=== PATIENT | female | born 1960 | race Caucasian/White ===

== ENCOUNTER → 2020-08-19 08:30 | Outpatient (BNVA) | payer OTHER, SELFPAY | PROVIDERS: Visit Provider Specialist | DX: Z11.52 Encounter for screening for COVID-19 (principal); Z20.822 Contact with and (suspected) exposure to COVID-19; S62.109A Fracture of unspecified carpal bone, unspecified wrist, initial encounter for closed fracture; X58.XXXA Exposure to other specified factors, initial encounter | CPT/HCPCS: 73110; 87635 ==

== ENCOUNTER 2020-08-21 07:42 | Day surgery (SDC) | payer OTHER, SELFPAY ==
[2020-08-20 15:13] VITALS: BMI 33.5
[2020-08-21] VITALS (10 sets, daily range): BP systolic 147–164; BP diastolic 77–102; PULSE 64–73; RESP 14–18; TEMP 36.5–37.1; O2SAT 96–99
--- NOTE | 2020-08-21 | XR_ITS ---
WS: [id number] Right wrist, C-arm fluoroscopy views, 08/21/2020 Clinical Data: ORIF DISTAL RADIUS Comparison: Right wrist, 08/19/2020. Findings: A ventral plate is applied to the distal right radius and fixed with multiple orthopedic screws. XR/XR wrist RT 2V 70019 Impression: Internal fixation of distal right radial fracture.
--- NOTE | 2020-08-21 | SCC_ITS ---
Procedure Done: Open reduction internal fixation right comminuted distal radius fracture 106.4 seconds of fluoroscopic guidance, for a cumulative dose of 2.38 mGy, was provided to Dr. Gordon by the radiology department. C-arm images of the RIGHT wrist were saved for the patient's permanent record. [facility]
--- NOTE | 2020-08-21 07:55 | P.HPUD_ITS ---
Surgery/Procedure H&P Update DATE OF PROCEDURE: August 21, 2020 DATE H&P PERFORMED: 08/19/20 H&P UPDATE INFORMATION: I have reviewed H&P completed within last 30 days, I have examined patient prior to procedure, No changes to prior documentation and H&P is in [facility] EMR on date indicated PREOP DIAGNOSIS: Comminuted right distal radius fracture PLANNED PROCEDURE: Operation Date: 08/21/20 09:10 Proposed Procedures p OPEN REDUCTION INTERNAL FIXATION WITH POSSIBLE BONE GRAFT OF RIGHT DISTAL RADIUS FRACTURE s52.509A(Right) - Daniella Gordon MD Related Problem List Diagnoses (1) Closed fracture of right distal radius:
[2020-08-21] MEDS: sodium chloride 0.9% 1,000 ML 30 ML IV (08:06)
[2020-08-21] MEDS: acetaminophen 1,000 MG/100 ML PIGGYBACK 400 MG IV (08:12)
[2020-08-21] MEDS: CELEcoxib 200 mg Capsule 400 MG PO (08:13)
--- NOTE | 2020-08-21 09:04 | ANES.PREANE2 ---
Pre-Anesthetic Assessment Pre-Anesthetic Assessment: Height/Weight: Height 1.57 m Weight 83.007 kg Temp Pulse Resp BP Pulse Ox 97.7 F 73 18 150/77 99 08/21/20 07:55 08/21/20 07:55 08/21/20 07:55 08/21/20 07:55 08/21/20 07:55 Preop Diagnosis: Comminuted right distal radius fracture Proposed Procedure: Operation Date: 08/21/20 09:10 Proposed Procedures p OPEN REDUCTION INTERNAL FIXATION WITH POSSIBLE BONE GRAFT OF RIGHT DISTAL RADIUS FRACTURE 39177 s52.509A(Right) - Daniella Gordon MD Was Beta Aida taken within 24 hours: N/A Was Clonidine taken within 24 hours: N/A Last intake: Intake Last Liquid Date 08/20/20 Last Liquid Time 23:00 Last Solid Date 08/20/20 Last Solid Time 20:00 Social: Social History: No alcohol and No tobacco (h/o smoking) Exam: Pre-Anes Outpt Exam: alert, oriented x 3, clear to auscultation bilaterally and regular rate & rhythm Airway: Submandibular: WNL Cervical ROM: WNL MP: 2 Dentition: Full Metabolic: Metabolic: Morbid obesity Anesthetic Plan: ASA status: 2 Anesthesia: General Risk of > 500 ml blood loss (7ml/kg in children): No Meds/Allergies Current Medications: Current Medications Generic Name Dose Route Start Last Admin Trade Name Freq PRN Reason Stop Dose Admin Sodium Chloride 1,000 mls @ 30 ml s/hr 08/21/20 08:00 08/21/20 08:06 Sodium Chloride 0.9% IV 08/22/20 07:59 30 mls/hr .Q24H WILFRIDO Administration PFSH Anesthesia PFSH: Social History Smoking and tobacco status: former smoker Data Anesthesia Cardiac Studies: No Data to Display
[2020-08-21] MEDS: ceFAZolin 1,000 mg SDV 1000 MG IRRIGATION (09:42)
--- NOTE | 2020-08-21 10:42 | P.OP_ITS ---
Operative Report Date of procedure: August 21, 2020 Pre-op Diagnosis: Comminuted right distal radius fracture Post-op diagnosis: same Post-op Findings: Osteopenic bone and comminuted intra-articular fracture Procedure Done: Open reduction internal fixation right comminuted distal radius fracture Implants: Ginette extra short narrow 3-hole volar right distal radius plate Specimens removed/disposition: None Pathology: none sent Surgeon: Daniella Gordon Telephone Clerks Supervisor: [facility] operating room technicians letter Anesthesia: General (Per LMA, ASA 2) Estimated blood loss (mL): 2 Tourniquet time (min): 58 Tourniquet time: At 250 mmHg IV fluids (mL): 800 Urine output (mL): 0 Urine output: No [place] Complications: None Findings: Severe comminution and osteopenia of distal radius fracture, unstable Condition: stable Disposition: PACU (Then discharged to home via same day surgery) Brief History: This 60-year-old woman presented after a fall which resulted in a comminuted, impacted, shortened right distal radius fracture. After discussion in the office, recommendation was made to proceed with open reduction internal fixation. The patient was advised that she might require supplemental bone graft secondary to the significant impaction and effective bone loss caused by this. The patient was in agreement. Questions were answered. Consents were signed. Procedure: Patient was seen in the preoperative holding area and right arm was marked. Patient was brought to the operating theater and placed on the operating room table. After undergoing adequate general anesthesia per LMA with supplemental regional block, ASA 2, the patient's right upper extremity was prepped and draped in usual fashion utilizing DuraPrep. The arm was draped free. Fluoroscopy was used throughout the surgical procedure. A tourniquet was placed high on the left upper extremity. The arm was exsanguinated. And the tourniquet was elevated to 250 mmHg and total tourniquet time was 58 minutes. A surgical pause was performed. At the time of the surgical pause we identified the site and side of surgery as well as the patient's identity and availability of equipment. We also confirmed appropriate administration of IV antibiotics, Ancef 2 g. Following the above, an incision was made centering over the patient's distal radius fracture with visualization accomplished on fluoroscopy. The incision was continued proximally and distally as necessarily to allow access to the fracture. Soft tissues were damaged at the time of the fracture, and blunt dissection was used to dissect down onto the radius. Under fluoroscopic guidance, we were able to reduce the fracture anatomically. The fracture was noted to reduce nicely and nearly anatomically. The plate had been chosen preoperatively with visualization of the fracture and the plate. The plate chosen was a 3 hole (extra short) narrow volar right distal radius plate. We used a combination of locking and one non-locking screw. Fracture reduction and screw lengths were evaluated utilizing fluoroscopy. The fracture essentially was held anatomically with this plate. After irrigation of the wound, attention was directed to closure. Closure was accomplished with 2-0 Monocryl in the subcutaneous tissues. 3-0 Monocryl was used to close the skin. This was followed by Dermabond, Steri-Strips, OpSite, fluffed fluffs, soft roll, and a volar splint. This was wrapped in place with an Terry wrap. The tourniquet was released after 58 minutes at 250 mmHg. The patient will be discharged home to follow-up with me in the office. The procedure was well tolerated without complication. There were no specimens. Associated Problem List Diagnoses (1) Closed fracture of right distal radius: Qualifiers: Encounter type: initial encounter Fracture morphology: other intra- articular Qualified Code(s): S52.571A - Other intraarticular fracture of lower end of right radius, initial encounter for closed fracture
--- NOTE | 2020-08-21 10:51 | SUR.PHASEI ---
PT TO PACU SLEEPY WITH GOOD RESP NOTED PT PLACED ON NC AT 3L RT ARM IN SLING WITH SPLINT AND JEFF D/I DISTAL FINGER PINK WARM,WARM CAP REFILL LESS THAN 3 SECONDS PT MOVES ALL FINGERS TO COMMAND PT NOW TAKING OCC ICE CHIPS.
[2020-08-21] MEDS: ondansetron 2 mg/ML SDV 2 mL 4 MG IVP (11:25)
[2020-08-21] MEDS: oxyCODONE 5 mg IR Tab/Cap PO (11:52)
--- NOTE | 2020-08-21 15:27 | ANE.PACU2 ---
Inpatient post-anesthesia follow up: Airway intact: Yes Vital signs: Temperature 98.7 F Pulse Rate 65 Respiratory Rate 18 Blood Pressure 159/78 Pulse Oximetry 98 Oxygen Delivery Me thod Room Air Oxygen Flow Rate 3 Fraction of Inspir ed Oxygen Hydration adequate: Yes Nausea and vomiting: No Pain level: 2 Mental status: Baseline
== END 2020-08-21 12:13 | disposition home or self-care (01) ==
PROVIDERS: Visit Provider Specialist
PROC: (CPT 25609; principal; 2020-08-21 09:00)
DX: S52.571A Other intraarticular fracture of lower end of right radius, initial encounter for closed fracture (principal); W01.0XXA Fall on same level from slipping, tripping and stumbling without subsequent striking against object, initial encounter; Z87.891 Personal history of nicotine dependence; E66.01 Morbid (severe) obesity due to excess calories; Z68.33 Body mass index [BMI] 33.0-33.9, adult
CPT/HCPCS: 25609; 73100; 76000; C1713; J0690; J1100; J1170; J2405; J2704; J3010; J3490; J7030

== ENCOUNTER → 2020-09-07 15:27 | Outpatient (BNVA) | payer OTHER, SELFPAY | PROVIDERS: Visit Provider Specialist | DX: S52.571A Other intraarticular fracture of lower end of right radius, initial encounter for closed fracture (principal); S52.501A Unspecified fracture of the lower end of right radius, initial encounter for closed fracture; X58.XXXA Exposure to other specified factors, initial encounter | CPT/HCPCS: 73110 ==

== ENCOUNTER 2020-09-07 16:04 | Outpatient (CLI) | payer OTHER, SELFPAY | END 2020-09-07 16:05 | disposition home or self-care (01) | LOC: SPT 16:05 | PROVIDERS: Visit Provider Specialist | DX: Z46.89 Encounter for fitting and adjustment of other specified devices (principal); S52.571D Other intraarticular fracture of lower end of right radius, subsequent encounter for closed fracture with routine healing; X58.XXXD Exposure to other specified factors, subsequent encounter | CPT/HCPCS: 97760; L3982 ==

== ENCOUNTER → 2020-09-28 09:47 | Outpatient (BNVA) | payer OTHER, SELFPAY | PROVIDERS: Visit Provider Specialist | DX: S52.571A Other intraarticular fracture of lower end of right radius, initial encounter for closed fracture (principal); S52.501A Unspecified fracture of the lower end of right radius, initial encounter for closed fracture; X58.XXXA Exposure to other specified factors, initial encounter | CPT/HCPCS: 73110 ==

== ENCOUNTER → 2020-10-21 15:06 | Outpatient (BNVA) | payer OTHER, SELFPAY | PROVIDERS: Visit Provider Specialist | DX: S52.571A Other intraarticular fracture of lower end of right radius, initial encounter for closed fracture (principal); X58.XXXA Exposure to other specified factors, initial encounter; Z98.1 Arthrodesis status | CPT/HCPCS: 73110 ==

== ENCOUNTER 2020-10-28 12:26 | Outpatient (RCR) | payer OTHER, SELFPAY | END 2020-11-19 23:59 | disposition home or self-care (01) | LOC: SOT 12:26 | PROVIDERS: Referring Provider Specialist; Visit Provider Specialist | DX: S52.501D Unspecified fracture of the lower end of right radius, subsequent encounter for closed fracture with routine healing (principal) | CPT/HCPCS: 97110; 97140; 97166 ==

== ENCOUNTER 2020-11-20 06:00 | Outpatient (RCR) | payer OTHER, SELFPAY | END 2020-12-20 23:59 | disposition home or self-care (01) | LOC: SOT 06:00 | PROVIDERS: Referring Provider Specialist; Visit Provider Specialist | DX: S52.501D Unspecified fracture of the lower end of right radius, subsequent encounter for closed fracture with routine healing (principal); T75.89XD Other specified effects of external causes, subsequent encounter | CPT/HCPCS: 97110; 97112 ==

== ENCOUNTER 2023-10-19 16:03 | Outpatient (RCR) | payer OTHER, SELFPAY | END 2023-10-21 18:00 | disposition home or self-care (01) | LOC: SPT 16:03 | DX: M54.50 Low back pain, unspecified (principal); M25.551 Pain in right hip; M25.552 Pain in left hip | CPT/HCPCS: 97161 ==